=== PATIENT | female | born 1955 | race Caucasian/White ===

== ENCOUNTER 2018-09-25 18:18 | Emergency (ER) | payer SELFPAY ==
[~2018-09-25] VITALS: Ht 162.6 cm; Wt 77.0 kg
[2018-09-25] MEDS ORDERED: IBUPROFEN 800MG TABLET PO ONE (18:45)
[2018-09-25 20:40] VITALS: BP 132/79
== END 2018-09-25 20:45 | disposition home or self-care (01) ==
LOC: ER 18:26
DX: S82.292A Other fracture of shaft of left tibia, initial encounter for closed fracture (principal); S80.01XA Contusion of right knee, initial encounter; S49.91XA Unspecified injury of right shoulder and upper arm, initial encounter; E11.9 Type 2 diabetes mellitus without complications; I10 Essential (primary) hypertension; W01.0XXA Fall on same level from slipping, tripping and stumbling without subsequent striking against object, initial encounter; Y93.89 Activity, other specified; Y92.512 Supermarket, store or market as the place of occurrence of the external cause
CPT/HCPCS: 29505; 73030; 73562; 99283; L1830